=== PATIENT | female | born 1990 | race Caucasian/White ===

== ENCOUNTER 2017-07-11 19:25 | Observation (INO) | payer OTHER ==
[2017-07-11] MEDS ORDERED: ONDANSETRON 4 MG/2 ML VIAL IVP ONE (20:30)
[2017-07-11] MEDS ORDERED: LR 500 ML IV ONE (21:00)
[2017-07-11] MEDS ORDERED: LR 1,000 ML IV SCH (21:00)
[2017-07-11 21:02] LABS: % IMMATURE GRANULYOCYTES 0.3 % (0.0-1.1); ABSOLUTE IMMATURE GRANULOCYTES 0.03 10^3/uL (0.00-0.10); ADD DIFF? NO; ADD MORPH? NO; ADD SCAN? NO; ATYPICAL LYMPHOCYTE FLAG 10 (0-99); FRAGMENT RBC FLAG 0 (0-99); HEMATOCRIT 34.6 % (38.0-47.0); HEMOGLOBIN 11.7 g/dL (12.6-16.3); LEFT SHIFT FLG 0 (0-99); LIPEMIA HEMOLYSIS FLAG 90 (0-99); MEAN CELL HEMOGLOBIN 30.7 pg (27.9-34.1); MEAN CELL HEMOGLOBIN CONCENTR. 33.8 g/dL (32.4-36.7); MEAN CELL VOLUME 90.8 fL (81.5-99.8); MEAN PLATELET VOLUME 11.2 fL (8.7-11.7); PLATELET CLUMPS FLAG 0 (0-99); PLATELET COUNT 208 10^3/uL (150-400); RED BLOOD CELL COUNT 3.81 10^6/uL (4.18-5.33); RED CELL DISTRIBUTION WIDTH 13.3 % (11.5-15.2)
[2017-07-11] MEDS ORDERED: ACETAMINOPHEN 500 MG TAB PO ONE (21:43)
--- NOTE | 2017-07-11 21:47 | OBPROG ---
OBG Labor Progress Note Assessment/Plan: Assessment:fhr 150 denies regular cramping denies leaking and bleeding feeling positive movement complaint of headache since tuesday vomiting occasionally Plan:iv fluids, cbc, tylenol, zofran 07/11/17 21:48 Subjective: Came in for a complaint of nausea and vomiting irregularly since Tuesday. Multiple aches and pains, round ligament , irregular cramping, Complaint of spotting vaginally 1 week ago. States feeling movement, denies leaking, bleeding resolved Objective: 07/11/17 20:47 - Physical Exam General Appearance: WD/WN, alert, no apparent distress Respiratory: chest non-tender, lungs clear, normal breath sounds Cardiac/Chest: regular rate, rhythm Abdomen: normal bowel sounds Extremities: normal range of motion, Keshav's sign (negative bilaterally) DTR- Lower Extremities: Knee (R): 1+, Knee (L): 1+ (no clonus) Skin: normal color, warm/dry Neuro/Psych: no motor/sensory deficits, alert, normal mood/affect, oriented x 3 Oxytocin Orders Assessment - Pre-Induction/Augmentation Assessment Gestational Age: 28 week(s) and 1 day(s) ICD10 Worksheet Patient Problems: Problems Problem Status Onset nausea and vomiting, headache Acute
--- NOTE | 2017-07-11 22:30 | GHP ---
[f rep st] HISTORY AND PHYSICAL DATE OF ADMISSION: 07/11/2017 HISTORY OF PRESENT ILLNESS: The patient is a 26-year-old, 1, para 0, with an EDC of 017, which gives her a gestational age of 28 and 1/7 weeks', who comes in with complaint of nausea a nd vomiting since Tuesday, headache, feeling tired and a myriad of other common discomfor t complaints. Routinely sees someone associated with [facility]. The patient is unsure of what physician and what medical group. MEDICAL HISTORY: History of a heart murmur. SURGICAL HISTORY: Benign. GYNECOLOGICAL HISTORY: OCP use and vaginosis in the past. Renal positive beta strep in patient's u rine in the last 2 weeks. Given antibiotics to take. Unaware of antibiotic type. FAMILY HISTORY: Mom has elevated blood pressure. Paternal grandmother has breast cancer. Maternal grandmother and maternal grandfather have heart disease. Paternal grandmother and paternal grandfa ther have heart disease. SOCIAL HISTORY: Patient is a nonsmoker. Denies drug use. Denies alcohol use with the . Works outside of the home. Lives in an apartment. Is here with a significant other. States 1 week ago with the had spotting, evolved and resolved and has denied any further bleeding episo raymon. Round ligament pain patient describes. States on ultrasound at 20 weeks, growth was good. De ny previa or abruption. As of yet has not done 1-hour GTT. PHYSICAL ASSESSMENT: GENERAL: Patient is awake, alert, oriented x3. LUNGS: Clear bilaterally. A BDOMEN: Bowel sounds are positive in all 4 quadrants. EXTREMITIES: DTRs are 1+ bilaterally. Caty ns sign is negative bilaterally. States has a headache denies other PIH symptoms. LABORATORY DATA: CBC was completed, anemic 34.6. MEDICATIONS: The patient is taking vitamins routinely. ALLERGIES: Denies any allergies to any medications. Unaware of blood type. PLAN OF CARE: 1. IV fluids. 2. Monitor contractions as well as heart rate. 3. Zofran for nausea and vomiting. 4. Consult Dr. No Baltazar for plan of care. /[id number]/MODL
== END 2017-07-11 22:54 | disposition home or self-care (01) ==
LOC: INTOOBSV 19:25 → FLD 19:25
PROVIDERS: ADMIT Advanced Practice Midwife; ATTEND Advanced Practice Midwife
DX: O21.2 Late vomiting of pregnancy (principal); Z3A.28 28 weeks gestation of pregnancy
CPT/HCPCS: G0378 ×2; J2405

== ENCOUNTER 2017-10-05 15:19 | Observation (INO) | payer OTHER | END 2017-10-05 18:42 | disposition home or self-care (01) | LOC: FLD 15:19 → INTOOBSV 15:19 | PROVIDERS: ADMIT Obstetrics & Gynecology; ATTEND Obstetrics & Gynecology | DX: O28.9 Unspecified abnormal findings on antenatal screening of mother (principal); R03.0 Elevated blood-pressure reading, without diagnosis of hypertension; O48.0 Post-term pregnancy; Z3A.40 40 weeks gestation of pregnancy | CPT/HCPCS: 59025; G0378 ==

== ENCOUNTER 2017-10-10 03:11 | Inpatient (IN) | payer OTHER ==
[2017-10-10 04:41] LABS: % IMMATURE GRANULYOCYTES 0.3 % (0.0-1.1); ABSOLUTE IMMATURE GRANULOCYTES 0.02 10^3/uL (0.00-0.10); ADD DIFF? NO; ADD MORPH? NO; ADD SCAN? NO; ATYPICAL LYMPHOCYTE FLAG 0 (0-99); FRAGMENT RBC FLAG 0 (0-99); HEMATOCRIT 34.5 % (38.0-47.0); HEMOGLOBIN 11.8 g/dL (12.6-16.3); LEFT SHIFT FLG 0 (0-99); LIPEMIA HEMOLYSIS FLAG 90 (0-99); MEAN CELL HEMOGLOBIN 30.9 pg (27.9-34.1); MEAN CELL HEMOGLOBIN CONCENTR. 34.2 g/dL (32.4-36.7); MEAN CELL VOLUME 90.3 fL (81.5-99.8); MEAN PLATELET VOLUME 12.1 fL (8.7-11.7); PLATELET CLUMPS FLAG 0 (0-99); PLATELET COUNT 172 10^3/uL (150-400); RED BLOOD CELL COUNT 3.82 10^6/uL (4.18-5.33); RED CELL DISTRIBUTION WIDTH 14.3 % (11.5-15.2)
[2017-10-10 04:42] LABS: ALANINE AMINOTRANSFERASE 28 IU/L (9-52); ASPARTATE AMINOTRANSFERASE 17 IU/L (14-46); BILIRUBIN,TOTAL 0.3 mg/dL (0.1-1.4); BILIRUBIN-CONJUGATED 0.2 mg/dL (0.0-0.5); BILIRUBIN-UNCONJUGATED 0.1 mg/dL (0.0-1.1); CREATININE 0.5 mg/dL (0.6-1.0); GLOMERULAR FILTRATION RATE > 60; LACTATE DEHYDROGENASE 395 IU/L (313-618); URIC ACID 4.6 mg/dL (2.5-6.8)
[2017-10-10] MEDS ORDERED: TERBUTALINE SULFATE 1 MG/ML VIAL IV PRN (06:10)
[2017-10-10] MEDS ORDERED: OLIVE OIL 118 ML BTL MISC PRN (06:10)
[2017-10-10] MEDS ORDERED: EPSOM SALT 454 GM TP PRN (06:10)
[2017-10-10] MEDS ORDERED: LR 1,000 ML IV PRN (06:10)
[2017-10-10] MEDS ORDERED: OXYTOCIN 20 UNIT in LR 1,000 ML IV PRN (06:10)
[2017-10-10] MEDS ORDERED: MISOPROSTOL 100 MCG TAB PO ONE (07:15)
[2017-10-10] MEDS: AMPICILLIN SODIUM 1 GM in NS 50 ML IV SCH ×5 (08:11→22:00)
[2017-10-10] MEDS: ACETAMINOPHEN 325 MG TAB PO PRN ×2 (10:24→23:54)
[2017-10-10] MEDS ORDERED: AMPICILLIN SODIUM 1 GM in NS 50 ML IV SCH (10:30)
--- NOTE | 2017-10-10 12:57 | GHP ---
[f rep st] PREOP HISTORY AND PHYSICAL DATE OF ADMISSION: 10/10/2017 ADMITTING DIAGNOSES: Intrauterine at 41 and 3/7 weeks gestation with elevated blood pressu res and proteinuria for induction of labor. HISTORY OF PRESENT ILLNESS: The patient is a 26-year-old, 1, para 0, with an estimated due d ate of 09/30/2017. She has had care at [facility] since 35 weeks gestation. She originally had care at a clinic in [place] prior to that. She presented to the [facility] complaining of headaches and was found to have elevated blood pressure 140s to 160 s over 80s to 90s, and she is over 41 weeks gestation. She had some mild cramping. Her cervix was f ound to be 1, 50%, and long. The patient is admitted for induction of labor secondary to headaches, elevated blood pressures, suspected preeclampsia versus gestational hypertension, and she will be ind uced. The patient has had adequate care. No significant risk factors except for a s above. REVIEW OF SYSTEMS: Negative except for as above as well. The patient was found to have elevated blo od pressures and had a P:C ratio performed that was 0.3. She has had PIH labs done, which are all wi thin normal limits. PAST OBSTETRICAL HISTORY: She is a G1. This is her first . GYNECOLOGICAL HISTORY: No significant. PAST MEDICAL HISTORY: No significant. PAST SURGICAL HISTORY: No significant. LABORATORIES: She is A positive, antibody negative, Pap normal, varicella immune, rubella immune, RP R nonreactive, hepatitis negative, HIV negative, gonorrhea and chlamydia negative. 1-hour GTT was no rmal. GBS was positive. SOCIAL HISTORY: She has a supportive partner. She is to [place]. She denies tobacco, alcoh ol, and drug use. She is a [id number] mom. FAMILY HISTORY: She has no significant family history. PHYSICAL EXAMINATION: VITAL SIGNS: Today she is afebrile. Blood pressures have been variable with some in the 120s to 130s over 60s to 70s, and some elevated in the 150s over 90s. heart tones are in the 130s, reactive, moderate variability, category 1. ABDOMINOPELVIC: She is yury reg ularly after she received 1 dose of Cytotec. I just checked her cervix and she is 2, 50%, and soft. PIH labs are within normal limits. ASSESSMENT AND PLAN: A 26-year-old, 1, para 0, at 41 and 3/7 weeks gestation, induction of l abor secondary to suspected preeclampsia. I will place a Yeung and start Pitocin now. We will watch her symptoms carefully and consider magnesium sulfate for seizure prophylaxis if needed, and ampicil lalitha for GBS. /[id number]/MODL
[2017-10-10] MEDS ORDERED: OXYTOCIN 30 UNIT in NS 500 ML IV SCH (13:00)
--- NOTE | 2017-10-10 16:17 | OBPROG ---
Labor Progress Note Assessment/Plan: Assessment: 26 y/o @ 41 3/7 weeks IOL secondary to Gestational HTN and post dates Plan: Yeung removed and patient is 4 cm. She would like an epidural prior to AROM, will assess for anesthesia. Continue pitocin per protocol. 10/10/17 16:14 Subjective/Intrapartum Course: 10/10/17 16:11 Pt is feeling more contractions now. She had taken a shower and enjoyed the hot water for her back pain. She is sitting on the birthing ball and coping well. Objective: 10/10/17 03:55 10/10/17 03:48 Patient ABO/Rh A POSITIVE 10/10/17 06:40 Uric Acid 4.6 mg/dL (2.5-6.8) 10/10/17 03:48 Total Bilirubin 0.3 mg/dL (0.1-1.4) 10/10/17 03:48 Conjugated Bilirubin 0.2 mg/dL (0.0-0.5) 10/10/17 03:48 Unconjugated Bilirubin 0.1 mg/dL (0.0-1.1) 10/10/17 03:48 AST 17 IU/L (14-46) 10/10/17 03:48 ALT 28 IU/L (9-52) 10/10/17 03:48 Lactate Dehydrogenase 395 IU/L (313-618) 10/10/17 03:48 - SVE Dilation (cm): 4 Effacement (%): 80 Station: -2 Membranes: Intact - Contraction Pattern Assessment Current Contraction Pattern: Irregular (Q 2-4) - FHR Assessment Iniguez FHR (bpm): 140 FHR Pattern Variability: Moderate FHR Category: 1 - AP Antepartum Course: 10/10/17 16:13 Pre care @ [facility]. Elevated BP and transient proteinuria. Pt presented with [facility] @ 41 weeks Oxytocin Orders Assessment - Pre-Induction/Augmentation Assessment Gestational Age: 41 week(s) and 3 day(s) ICD10 Worksheet Patient Problems: Problems Problem Status Onset nausea and vomiting, headache Acute
[2017-10-10] MEDS ORDERED: OXYCODONE/APAP 5/325 TAB ONE (17:09)
[2017-10-10] MEDS ORDERED: fentaNYL 2MCG/ML/BUP 0.1% RTU 100 ML BAG EP ONE (17:38)
[2017-10-10] MEDS ORDERED: BUPIVACAINE 0.25% 30 ML SDV ONE (17:39)
[2017-10-10] MEDS ORDERED: PHENYLEPHRINE HCL 100 MCG/ML SYR ONE (17:39)
[2017-10-10] MEDS ORDERED: fentaNYL 100 MCG/2 ML INJ ONE (17:40)
[2017-10-10] MEDS ORDERED: OLIVE OIL 118 ML BTL ONE (18:40)
[2017-10-10] MEDS ORDERED: LIDOCAINE 1% 300 MG/30 ML SDV ONE (18:40)
[2017-10-10] MEDS ORDERED: OXYTOCIN 10 UNIT/ML VIAL ONE (18:41)
[2017-10-10] MEDS ORDERED: AMMONIA AROMATIC 1 EACH AMP IH ONE (18:41)
[2017-10-10] MEDS ORDERED: MISOPROSTOL 200 MCG TAB ONE (18:41)
[2017-10-10] MEDS ORDERED: TERBUTALINE SULFATE 1 MG/ML VIAL ONE (18:41)
[2017-10-10] MEDS ORDERED: PHENYLEPHRINE HCL 100 MCG/ML SYR IVP PRN (18:53)
--- NOTE | 2017-10-10 18:53 | PREANESOB ---
Obstetric Pre-Anesthesia Info - General Info Proposed Procedure: Labor and delivery with pitocin. : 1 Para: 0 VIOLA: 09/30/17 Gestational Age: 41 week(s) and 3 day(s) - Info Status: Postmature Monitors: External FHR Baseline (bpm): 130 FHR Pattern: Reassuring - Labor Status Cervical Dilation per last OB SVE: 4 Station per last OB SVE: -2 Pitocin: In Use Magnesium Sulfate in Use: No Indications for Labor Analgesia: Induction of Labor, Pain Control Labor Epidural: Proposed Anesthesia ROS: Negative. Allergies/Adverse Reactions: Allergy/AdvReac Type Severity Reaction Status Date / Time No Known Allergies Allergy Unverified 08/11/14 15:24 Home Medications: Medication Instructions Recorded 1 tab PO DAILY 07/11/17 Flexeril 10 MG (*) 10 mg PO PRN PRN 10/10/17 Multivitamin 1 tab PO DAILY 10/10/17 Tylenol W/Codeine 30 mg PO PRN PRN 10/10/17 Visit Medications: Generic Name Dose Route Start Last Admin Trade Name Freq PRN Reason Stop Dose Admin Acetaminophen 650 mg 10/10/17 10:05 10/10/17 10:24 Tylenol PO 04/08/18 10:04 650 mg Q4HRS PRN Administration Pain, Mild/Fever, Can Take PO Lactated Ringer's 1,000 mls @ 0 mls/hr 10/10/17 06:10 10/10/17 08:10 Lr IV 10/11/17 06:09 1,000 mls PRN PRN Administration SEE PROTOCOL CONDITIONS Protocol Per Protocol Oxytocin 20 unit/ Lactated 1,002 mls @ 150 mls/hr 10/10/17 06:10 Ringer's IV PRN PRN Post- bleeding Ampicillin Sodium 1 gm/ Sodium 50 mls @ 200 mls/hr 10/10/17 13:00 10/10/17 18 :03 Chloride IV 11/09/17 10:29 50 mls Q4H NORMA Administration Protocol Oxytocin 30 unit/ Sodium 503 mls @ 0 mls/hr 10/10/17 13:00 10/10/17 13:13 Chloride IV 04/08/18 12:59 503 mls CONT NORMA Administration Per Protocol Ibuprofen 600 mg 10/10/17 06:10 Motrin PO 04/08/18 06:09 Q6HRS PRN post , inflammation Magnesium Sulfate 454 gm 10/10/17 06:10 Epsom Salt TP 04/08/18 06:09 Q1H PRN perineal discomfort [place] Oil 118 ml 10/10/17 06:10 Sweet Oil MISC 04/08/18 06:09 ONCE PRN perineal massage Terbutaline Sulfate 0.25 mg 10/10/17 06:10 Brethine IV 04/08/18 06:09 ONCE PRN Tachysystole Discontinued Medications Generic Name Dose Route Start Last Admin Trade Name Freq PRN Reason Stop Dose Admin Ammonia (Aromatic Spirit) Confirm 10/10/17 18:41 Ammonia Aromatic Administered 10/10/17 18:42 Dose 1 each IH .STK-MED ONE Bupivacaine HCl Confirm 10/10/17 17:39 Sensorcaine 0.25% Sdv Administered 10/10/17 17:40 Dose 30 ml .ROUTE .STK-MED ONE Ephedrine Sulfate Confirm 10/10/17 18:41 Ephedrine Sulfate Administered 10/10/17 18:42 Dose 50 mg .ROUTE .STK-MED ONE Fentanyl Confirm 10/10/17 17:40 Sublimaze Administered 10/10/17 17:41 Dose 100 mcg .ROUTE .STK-MED ONE Fentanyl/Bupivacaine HCl Confirm 10/10/17 17:38 Fentanyl/Bupivacaine/Ns 2 Mcg/Ml 0.1% (Premix Administered 10/10/17 17:39 Dose 100 ml EP .STK-MED ONE Ampicillin Sodium 1 gm/ Sodium 50 mls @ 100 mls/hr 10/10/17 06:30 10/10/17 08 :56 Chloride IV 10/10/17 07:29 50 mls Q30M NORMA Administration Protocol Ampicillin Sodium 1 gm/ Sodium 50 mls @ 200 mls/hr 10/10/17 10:30 Chloride IV 11/09/17 10:29 Q4H NORMA Protocol Lidocaine HCl Confirm 10/10/17 18:40 Lidocaine Hcl 1% Administered 10/10/17 18:41 Dose 300 mg .ROUTE .STK-MED ONE Misoprostol 50 mcg 10/10/17 07:15 10/10/17 07:46 Cytotec PO 10/10/17 07:16 50 mcg ONCE ONE Administration Misoprostol Confirm 10/10/17 18:41 Cytotec Administered 10/10/17 18:42 Dose 800 mcg .ROUTE .STK-MED ONE [place] Oil Confirm 10/10/17 18:40 Sweet Oil Administered 10/10/17 18:41 Dose 118 ml .ROUTE .STK-MED ONE Oxycodone/Acetaminophen Confirm 10/10/17 17:09 Percocet 5/325 Administered 10/10/17 17:10 Dose 1 tab .ROUTE .STK-MED ONE Oxytocin Confirm 10/10/17 18:41 Pitocin Administered 10/10/17 18:42 Dose 40 unit .ROUTE .STK-MED ONE Phenylephrine HCl Confirm 10/10/17 17:39 Neosynephrine Administered 10/10/17 17:40 Dose 1,000 mcg .ROUTE .STK-MED ONE Terbutaline Sulfate Confirm 10/10/17 18:41 Brethine Administered 10/10/17 18:42 Dose 1 mg .ROUTE .STK-MED ONE - Anesthesia History Response to Local Anesthetics: Normal Anesthesia & Operative History: No Prior Problems Family Anesthesia History: Negative - Social History Substance Use/Abuse: Denies - Vital Signs Blood Pressure: 143/107 Heart Rate: 90 Height/Weight (Nursing): Height 160.02 cm Weight 89.358 kg - Focused Exam Neck exam: FROM Mallampati Score: Class 2 Mouth exam: normal dental/mouth exam Pulmonary: no respiratory distress Cardiovascular: regular rate and rhythym Labs: 10/10/17 03:55 10/10/17 03:48 Patient ABO/Rh A POSITIVE 10/10/17 06:40 Uric Acid 4.6 mg/dL (2.5-6.8) 10/10/17 03:48 Total Bilirubin 0.3 mg/dL (0.1-1.4) 10/10/17 03:48 Conjugated Bilirubin 0.2 mg/dL (0.0-0.5) 10/10/17 03:48 Unconjugated Bilirubin 0.1 mg/dL (0.0-1.1) 10/10/17 03:48 AST 17 IU/L (14-46) 10/10/17 03:48 ALT 28 IU/L (9-52) 10/10/17 03:48 Lactate Dehydrogenase 395 IU/L (313-618) 10/10/17 03:48 - Plan Anesthetic Plan: EVERETT Consent Signed and on Chart: Yes Patient/Guardian Understands and Agrees to Plan: Yes Urgent/Emergent Case: Loren contreras completed preop but documented later for safe timely pt care
--- NOTE | 2017-10-10 18:53 | POSTANESTH ---
Post Anesthetic Evaluation Cardiovascular Status: Normal, Stable, Similar to Pre-Op Cond Respiratory Status: Normal, Stable, Similar to Pre-op Cond. Level of Consciousness/Mental Status: Can Participate in Eval, Alert and Oriented Pain Control: Adequate, Prn Tx Ordered Nausea/Vomiting Control: Adequate, Prn Tx Ordered Complications Possibly Related to Anesthesia: None Noted
[2017-10-10] MEDS ORDERED: LR 500 ML IV SCH (19:00)
[2017-10-10] MEDS ORDERED: fentaNYL 2MCG/ML/BUP 0.1% RTU 100 ML EP SCH (19:00)
--- NOTE | 2017-10-10 19:34 | OBPROG ---
Labor Progress Note Assessment/Plan: Assessment: 26 y/o @ 41 3/7 weeks IOL secondary to Gestational HTN and post dates Plan: AROM patient for clear fluid now. Epidural in place and pt is comfortable, continue pitocin per protocol. BP is stable and she is asymptomatic now, continue IOL and observe closely. 10/10/17 16:14 10/10/17 19:33 Subjective/Intrapartum Course: 10/10/17 16:11 Pt is feeling more contractions now. She had taken a shower and enjoyed the hot water for her back pain. She is sitting on the birthing ball and coping well. 10/10/17 19:31 Pt is now comfortable with her epidural. Objective: 10/10/17 03:55 10/10/17 03:48 Patient ABO/Rh A POSITIVE 10/10/17 06:40 Uric Acid 4.6 mg/dL (2.5-6.8) 10/10/17 03:48 Total Bilirubin 0.3 mg/dL (0.1-1.4) 10/10/17 03:48 Conjugated Bilirubin 0.2 mg/dL (0.0-0.5) 10/10/17 03:48 Unconjugated Bilirubin 0.1 mg/dL (0.0-1.1) 10/10/17 03:48 AST 17 IU/L (14-46) 10/10/17 03:48 ALT 28 IU/L (9-52) 10/10/17 03:48 Lactate Dehydrogenase 395 IU/L (313-618) 10/10/17 03:48 Temp Pulse Resp BP Pulse Ox 90 143/107 H 10/10/17 18:53 10/10/17 18:53 - SVE Dilation (cm): 5 Effacement (%): 50 Station: -1 Membranes: AROM, Intact Amniotic Fluid Color: Clear - Contraction Pattern Assessment Current Contraction Pattern: Regular (Q 2-3), Irregular (Q 2-4) - FHR Assessment Iniguez FHR (bpm): 130 FHR Pattern Variability: Moderate FHR Category: 1 - Procedures Non-surgical Procedures: Amniotomy - AP Antepartum Course: 10/10/17 16:13 Pre care @ [facility]. Elevated BP and transient proteinuria. Pt presented with [facility] @ 41 weeks Oxytocin Orders Assessment - Pre-Induction/Augmentation Assessment Gestational Age: 41 week(s) and 3 day(s) ICD10 Worksheet Patient Problems: Problems Problem Status Onset nausea and vomiting, headache Acute
[2017-10-10] MEDS ORDERED: CALCIUM CARBONATE 500 MG CHEWABLE TAB PO PRN (22:18)
[2017-10-10] MEDS ORDERED: FAMOTIDINE 20 MG TAB PO PRN (22:18)
--- NOTE | 2017-10-10 22:18 | OBPROG ---
Labor Progress Note Assessment/Plan: Assessment: 26 y/o @ 41 3/7 weeks IOL secondary to Gestational HTN and post dates Plan: IUPC and FSE placed to carefully monitor status and contraction strength. Will increase pitocin to develop an adequate labor pattern. 10/10/17 16:14 10/10/17 19:33 10/10/17 22:16 Subjective/Intrapartum Course: 10/10/17 16:11 Pt is feeling more contractions now. She had taken a shower and enjoyed the hot water for her back pain. She is sitting on the birthing ball and coping well. 10/10/17 19:31 Pt is now comfortable with her epidural. 10/10/17 22:15 Pt remains comfortable with her epidural. Objective: 10/10/17 03:55 10/10/17 03:48 Patient ABO/Rh A POSITIVE 10/10/17 06:40 Uric Acid 4.6 mg/dL (2.5-6.8) 10/10/17 03:48 Total Bilirubin 0.3 mg/dL (0.1-1.4) 10/10/17 03:48 Conjugated Bilirubin 0.2 mg/dL (0.0-0.5) 10/10/17 03:48 Unconjugated Bilirubin 0.1 mg/dL (0.0-1.1) 10/10/17 03:48 AST 17 IU/L (14-46) 10/10/17 03:48 ALT 28 IU/L (9-52) 10/10/17 03:48 Lactate Dehydrogenase 395 IU/L (313-618) 10/10/17 03:48 Temp Pulse Resp BP Pulse Ox 90 143/107 H 10/10/17 18:53 10/10/17 18:53 - SVE Dilation (cm): 6 Effacement (%): 80 Station: 0 Membranes: AROM, Intact Amniotic Fluid Color: Clear - Contraction Pattern Assessment Current Contraction Pattern: Regular (Q 2-3), Irregular (Q 2-4) - FHR Assessment Iniguez FHR (bpm): 130 FHR Pattern Variability: Moderate FHR Category: 1 (occasional early and rare variable decels) - Procedures Non-surgical Procedures: Amniotomy, FSE, IUPC - AP Antepartum Course: 10/10/17 16:13 Pre rosita care @ [facility]. Elevated BP and transient proteinuria. Pt presented with [facility] @ 41 weeks Oxytocin Orders Assessment - Pre-Induction/Augmentation Assessment Gestational Age: 41 week(s) and 3 day(s) ICD10 Worksheet Patient Problems: Problems Problem Status Onset nausea and vomiting, headache Acute
[2017-10-10] MEDS: ONDANSETRON 4 MG/2 ML VIAL IVP PRN (23:01)
--- NOTE | 2017-10-11 01:03 | OBPROG ---
Labor Progress Note Assessment/Plan: Assessment: 26 y/o @ 41 3/7 weeks IOL secondary to Gestational HTN and post dates Plan: Pt is making slow but steady progress. Baby is overall reassuring showing early decels. Re check in 2 hours. 10/10/17 16:14 10/10/17 19:33 10/10/17 22:16 10/11/17 01:00 Subjective/Intrapartum Course: 10/10/17 16:11 Pt is feeling more contractions now. She had taken a shower and enjoyed the hot water for her back pain. She is sitting on the birthing ball and coping well. 10/10/17 19:31 Pt is now comfortable with her epidural. 10/10/17 22:15 Pt remains comfortable with her epidural. 10/11/17 00:59 Pt is resting comfortably. Objective: 10/10/17 03:55 10/10/17 03:48 Patient ABO/Rh A POSITIVE 10/10/17 06:40 Uric Acid 4.6 mg/dL (2.5-6.8) 10/10/17 03:48 Total Bilirubin 0.3 mg/dL (0.1-1.4) 10/10/17 03:48 Conjugated Bilirubin 0.2 mg/dL (0.0-0.5) 10/10/17 03:48 Unconjugated Bilirubin 0.1 mg/dL (0.0-1.1) 10/10/17 03:48 AST 17 IU/L (14-46) 10/10/17 03:48 ALT 28 IU/L (9-52) 10/10/17 03:48 Lactate Dehydrogenase 395 IU/L (313-618) 10/10/17 03:48 Temp Pulse Resp BP Pulse Ox 90 143/107 H 10/10/17 18:53 10/10/17 18:53 - SVE Dilation (cm): 8 Effacement (%): 90 Station: 0 Membranes: AROM, Intact Amniotic Fluid Color: Clear - Contraction Pattern Assessment Current Contraction Pattern: Regular (Q 2-3), Irregular (Q 2-4) - FHR Assessment Iniguez FHR (bpm): 140 FHR Pattern Variability: Moderate FHR Category: 1 (early decels) - Procedures Non-surgical Procedures: Amniotomy, FSE, IUPC - AP Antepartum Course: 10/10/17 16:13 Pre rosita care @ [facility]. Elevated BP and transient proteinuria. Pt presented with [facility] @ 41 weeks Oxytocin Orders Assessment - Pre-Induction/Augmentation Assessment Gestational Age: 41 week(s) and 3 day(s) ICD10 Worksheet Patient Problems: Problems Problem Status Onset nausea and vomiting, headache Acute
[2017-10-11] MEDS: AMPICILLIN SODIUM 1 GM in NS 50 ML IV SCH ×4 (02:09→13:30)
--- NOTE | 2017-10-11 05:00 | OBPROG ---
Labor Progress Note Assessment/Plan: Assessment: 26 y/o @ 41 3/7 weeks IOL secondary to Gestational HTN and post dates Plan: Pt has made slow progress but change in the last hour. We will rotate her to the left and re check in 1 hour. 10/10/17 16:14 10/10/17 19:33 10/10/17 22:16 10/11/17 01:00 10/11/17 04:58 Subjective/Intrapartum Course: 10/10/17 16:11 Pt is feeling more contractions now. She had taken a shower and enjoyed the hot water for her back pain. She is sitting on the birthing ball and coping well. 10/10/17 19:31 Pt is now comfortable with her epidural. 10/10/17 22:15 Pt remains comfortable with her epidural. 10/11/17 00:59 Pt is resting comfortably. 10/11/17 04:56 Pt is now feeling more pelvic pressure and the sensation to have a BM. Objective: 10/10/17 03:55 10/10/17 03:48 Patient ABO/Rh A POSITIVE 10/10/17 06:40 Uric Acid 4.6 mg/dL (2.5-6.8) 10/10/17 03:48 Total Bilirubin 0.3 mg/dL (0.1-1.4) 10/10/17 03:48 Conjugated Bilirubin 0.2 mg/dL (0.0-0.5) 10/10/17 03:48 Unconjugated Bilirubin 0.1 mg/dL (0.0-1.1) 10/10/17 03:48 AST 17 IU/L (14-46) 10/10/17 03:48 ALT 28 IU/L (9-52) 10/10/17 03:48 Lactate Dehydrogenase 395 IU/L (313-618) 10/10/17 03:48 Temp Pulse Resp BP Pulse Ox 90 143/107 H 10/10/17 18:53 10/10/17 18:53 - SVE Dilation (cm): 9 Effacement (%): 90 Station: +1 Membranes: AROM, Intact Amniotic Fluid Color: Clear - Contraction Pattern Assessment Current Contraction Pattern: Regular (Q 2-3), Irregular (Q 2-4) - FHR Assessment Iniguez FHR (bpm): 140 FHR Pattern Variability: Moderate FHR Category: 1 (early decelerations) - Procedures Non-surgical Procedures: Amniotomy, FSE, IUPC - AP Antepartum Course: 10/10/17 16:13 Pre rosita care @ [facility]. Elevated BP and transient proteinuria. Pt presented with [facility] @ 41 weeks Oxytocin Orders Assessment - Pre-Induction/Augmentation Assessment Gestational Age: 41 week(s) and 3 day(s) ICD10 Worksheet Patient Problems: Problems Problem Status Onset nausea and vomiting, headache Acute
[2017-10-11] MEDS: ONDANSETRON 4 MG/2 ML VIAL IVP PRN ×4 (06:08→18:50)
[2017-10-11] MEDS: ACETAMINOPHEN 325 MG TAB PO PRN (08:18)
--- NOTE | 2017-10-11 10:57 | OBPROG ---
Labor Progress Note Assessment/Plan: Assessment: 26 y/o @ 41 3/7 weeks for IOL secondary to Gestational HTN and post dates Plan: Pt has been pushing x 1 hour now, off and on FHTs - Cat I tracing with early decels Temp 37.7, will cont to monitor Will monitor for descent 10/11/17 10:57 Subjective/Intrapartum Course: 10/10/17 16:11 Pt is feeling more contractions now. She had taken a shower and enjoyed the hot water for her back pain. She is sitting on the birthing ball and coping well. 10/10/17 19:31 Pt is now comfortable with her epidural. 10/10/17 22:15 Pt remains comfortable with her epidural. 10/11/17 00:59 Pt is resting comfortably. 10/11/17 04:56 Pt is now feeling more pelvic pressure and the sensation to have a BM. 10/11/17 11:03 Pt is pushing now. Objective: 10/10/17 03:55 10/10/17 03:48 Patient ABO/Rh A POSITIVE 10/10/17 06:40 Uric Acid 4.6 mg/dL (2.5-6.8) 10/10/17 03:48 Total Bilirubin 0.3 mg/dL (0.1-1.4) 10/10/17 03:48 Conjugated Bilirubin 0.2 mg/dL (0.0-0.5) 10/10/17 03:48 Unconjugated Bilirubin 0.1 mg/dL (0.0-1.1) 10/10/17 03:48 AST 17 IU/L (14-46) 10/10/17 03:48 ALT 28 IU/L (9-52) 10/10/17 03:48 Lactate Dehydrogenase 395 IU/L (313-618) 10/10/17 03:48 Temp Pulse Resp BP Pulse Ox 90 143/107 H 10/10/17 18:53 10/10/17 18:53 - SVE Dilation (cm): 10 Effacement (%): 100 Station: +2 Membranes: AROM, Intact Amniotic Fluid Color: Clear Dilation Complete Date: 10/11/17 Dilation Complete Time: 10:50 - Contraction Pattern Assessment Current Contraction Pattern: Regular (Q 2-3) - FHR Assessment Iniguez FHR (bpm): 130 FHR Pattern Variability: Moderate FHR Category: 1 - Procedures Non-surgical Procedures: Amniotomy, FSE, IUPC - AP Antepartum Course: 10/10/17 16:13 Pre care @ [facility]. Elevated BP and transient proteinuria. Pt presented with [facility] @ 41 weeks Oxytocin Orders Assessment - Pre-Induction/Augmentation Assessment Gestational Age: 41 week(s) and 3 day(s) ICD10 Worksheet Patient Problems: Problems Problem Status Onset Gestational hypertension Acute Post-dates Acute nausea and vomiting, headache Acute - ICD10 Problem Qualifiers (1) Post-dates (2) Gestational hypertension
[2017-10-11] MEDS ORDERED: ceFAZolin 2 GM/DEXTROSE 100 ML IV ONE (14:36)
--- NOTE | 2017-10-11 14:40 | OBPROG ---
Labor Progress Note Assessment/Plan: Assessment: 26 y/o @ 41 3/7 weeks for IOL secondary to Gestational HTN and post dates Plan: Pt has labored down x 1 hour and pushed x 2-3 times with no decent of head Discussed proceeding to OR for PCS secondary to arrest of descent and prolonged second stage of labor Surgical consents obtained Discussed R/B/A with pt including but not limited to bleeding, infection and damage to surrounding organs Pt understands all risks and wants to proceed with surgery at this time Abx fire control officer to OR SCDs for DVT prophylaxis 10/11/17 14:37 Subjective/Intrapartum Course: 10/10/17 16:11 Pt is feeling more contractions now. She had taken a shower and enjoyed the hot water for her back pain. She is sitting on the birthing ball and coping well. 10/10/17 19:31 Pt is now comfortable with her epidural. 10/10/17 22:15 Pt remains comfortable with her epidural. 10/11/17 00:59 Pt is resting comfortably. 10/11/17 04:56 Pt is now feeling more pelvic pressure and the sensation to have a BM. 10/11/17 11:03 Pt is pushing now. 10/11/17 14:39 Pt is starting to feel her ctx's. Objective: 10/10/17 03:55 10/10/17 03:48 Patient ABO/Rh A POSITIVE 10/10/17 06:40 Uric Acid 4.6 mg/dL (2.5-6.8) 10/10/17 03:48 Total Bilirubin 0.3 mg/dL (0.1-1.4) 10/10/17 03:48 Conjugated Bilirubin 0.2 mg/dL (0.0-0.5) 10/10/17 03:48 Unconjugated Bilirubin 0.1 mg/dL (0.0-1.1) 10/10/17 03:48 AST 17 IU/L (14-46) 10/10/17 03:48 ALT 28 IU/L (9-52) 10/10/17 03:48 Lactate Dehydrogenase 395 IU/L (313-618) 10/10/17 03:48 Temp Pulse Resp BP Pulse Ox 90 143/107 H 10/10/17 18:53 10/10/17 18:53 - SVE Dilation (cm): 10 Effacement (%): 100 Station: +1 Membranes: AROM, Intact Amniotic Fluid Color: Clear Dilation Complete Date: 10/11/17 Dilation Complete Time: 10:50 - Contraction Pattern Assessment Current Contraction Pattern: Irregular - FHR Assessment Iniguez FHR (bpm): 130 FHR Pattern Variability: Moderate FHR Category: 1 - Procedures Non-surgical Procedures: Amniotomy, FSE, IUPC - AP Antepartum Course: 10/10/17 16:13 care @ [facility]. Elevated BP and transient proteinuria. Pt presented with SHAH @ 41 weeks 10/11/17 14:41 Oxytocin Orders Assessment - Pre-Induction/Augmentation Assessment Gestational Age: 41 week(s) and 3 day(s) ICD10 Worksheet Patient Problems: Problems Problem Status Onset Gestational hypertension Acute Post-dates Acute - ICD10 Problem Qualifiers (1) Post-dates (2) Gestational hypertension
[2017-10-11] MEDS ORDERED: HYDROmorphONE/DILAUDID 1 MG/ML INJ IVP PRN (15:07)
[2017-10-11] MEDS ORDERED: ONDANSETRON 4 MG/2 ML VIAL IVP PRN (15:07)
[2017-10-11] MEDS ORDERED: fentaNYL 100 MCG/2 ML INJ IVP PRN (15:07)
--- NOTE | 2017-10-11 15:09 | PREANESOB ---
Obstetric Pre-Anesthesia Info - General Info Proposed Procedure: : 1 Para: 0 VIOLA: 09/30/17 Gestational Age: 41 week(s) and 3 day(s) - Info Status: Postmature FHR Baseline (bpm): 130 - Labor Status Cervical Dilation per last OB SVE: 10 Station per last OB SVE: +1 Amniotic Fluid Color: Clear Indications for Current Section: Arrest of Descent Labor Epidural: Yes Anesthesia Allergies/Adverse Reactions: Allergy/AdvReac Type Severity Reaction Status Date / Time No Known Allergies Allergy Unverified 08/11/14 15:24 Home Medications: Medication Instructions Recorded 1 tab PO DAILY 07/11/17 Flexeril 10 MG (*) 10 mg PO PRN PRN 10/10/17 Multivitamin 1 tab PO DAILY 10/10/17 Tylenol W/Codeine 30 mg PO PRN PRN 10/10/17 Visit Medications: Generic Name Dose Route Start Last Admin Trade Name Freq PRN Reason Stop Dose Admin Acetaminophen 650 mg 10/10/17 10:05 10/11/17 08:18 Tylenol PO 04/08/18 10:04 650 mg Q4HRS PRN Administration Pain, Mild/Fever, Can Take PO Calcium Carbonate 500 mg 10/10/17 22:18 Tums PO 04/08/18 22:17 TID PRN Indigestion Diphenhydramine HCl 25 - 50 mg 10/10/17 18:53 Benadryl Injection IVP 04/08/18 18:52 Q6HRS PRN Itching Famotidine 20 mg 10/10/17 22:18 10/10/17 22:27 Pepcid PO 04/08/18 22:29 20 mg BID PRN Administration Indigestion Oxytocin 20 unit/ Lactated 1,002 mls @ 150 mls/hr 10/10/17 06:10 Ringer's IV PRN PRN Post- bleeding Ampicillin Sodium 1 gm/ Sodium 50 mls @ 200 mls/hr 10/10/17 13:00 10/11/17 13 :30 Chloride IV 11/09/17 10:29 50 mls Q4H NORMA Administration Protocol Oxytocin 30 unit/ Sodium 503 mls @ 0 mls/hr 10/10/17 13:00 10/10/17 13:13 Chloride IV 04/08/18 12:59 503 mls CONT NORMA Administration Per Protocol Fentanyl/Bupivacaine HCl 100 mls @ 0 mls/hr 10/10/17 19:00 Fentanyl/Bupivacaine/Ns 2 Mcg/Ml 0.1% (Premix EP 10/20/17 18:59 CONT NORMA Protocol As Directed Lactated Ringer's 500 mls @ 0 mls/hr 10/10/17 19:00 Lr IV 04/08/18 18:59 CONT NORMA As Directed Ibuprofen 600 mg 10/10/17 06:10 Motrin PO 04/08/18 06:09 Q6HRS PRN post , inflammation Magnesium Sulfate 454 gm 10/10/17 06:10 Epsom Salt TP 04/08/18 06:09 Q1H PRN perineal discomfort [place] Oil 118 ml 10/10/17 06:10 Sweet Oil MISC 04/08/18 06:09 ONCE PRN perineal massage Ondansetron HCl 4 mg 10/10/17 18:53 10/11/17 13:39 Zofran IVP 10/11/17 18:52 4 mg Q4HRS PRN Administration Nausea/Vomiting, Can't Take PO Phenylephrine HCl 100 mcg 10/10/17 18:53 Neosynephrine IVP 04/08/18 18:52 .Q2M PRN Hypotension Terbutaline Sulfate 0.25 mg 10/10/17 06:10 Brethine IV 04/08/18 06:09 ONCE PRN Tachysystole Discontinued Medications Generic Name Dose Route Start Last Admin Trade Name Freq PRN Reason Stop Dose Admin Ammonia (Aromatic Spirit) Confirm 10/10/17 18:41 Ammonia Aromatic Administered 10/10/17 18:42 Dose 1 each IH .STK-MED ONE Bupivacaine HCl Confirm 10/10/17 17:39 Sensorcaine 0.25% Sdv Administered 10/10/17 17:40 Dose 30 ml .ROUTE .STK-MED ONE Ephedrine Sulfate Confirm 10/10/17 18:41 Ephedrine Sulfate Administered 10/10/17 18:42 Dose 50 mg .ROUTE .STK-MED ONE Fentanyl Confirm 10/10/17 17:40 Sublimaze Administered 10/10/17 17:41 Dose 100 mcg .ROUTE .STK-MED ONE Fentanyl/Bupivacaine HCl Confirm 10/10/17 17:38 Fentanyl/Bupivacaine/Ns 2 Mcg/Ml 0.1% (Premix Administered 10/10/17 17:39 Dose 100 ml EP .STK-MED ONE Ampicillin Sodium 1 gm/ Sodium 50 mls @ 100 mls/hr 10/10/17 06:30 10/10/17 08 :56 Chloride IV 10/10/17 07:29 50 mls Q30M NORMA Administration Protocol Ampicillin Sodium 1 gm/ Sodium 50 mls @ 200 mls/hr 10/10/17 10:30 10/10/17 23 :58 Chloride IV 11/09/17 10:29 Not Given Q4H [facility] Protocol Lactated Ringer's 1,000 mls @ 0 mls/hr 10/10/17 06:10 10/10/17 08:10 Lr IV 10/11/17 06:09 1,000 mls PRN PRN Administration SEE PROTOCOL CONDITIONS Protocol Per Protocol Cefazolin Sodium/Dextrose 100 mls @ 200 mls/hr 10/11/17 14:36 10/11/17 14:58 Ancef 2 Gm (Premix) IV 10/11/17 15:05 100 mls ONCALL ONE Administration Protocol Lidocaine HCl Confirm 10/10/17 18:40 Lidocaine Hcl 1% Administered 10/10/17 18:41 Dose 300 mg .ROUTE .STK-MED ONE Misoprostol 50 mcg 10/10/17 07:15 10/10/17 07:46 Cytotec PO 10/10/17 07:16 50 mcg ONCE ONE Administration Misoprostol Confirm 10/10/17 18:41 Cytotec Administered 10/10/17 18:42 Dose 800 mcg .ROUTE .STK-MED ONE Morphine Sulfate Confirm 10/11/17 14:59 Morphine Sulfate Administered 10/11/17 15:00 Dose 10 mg .ROUTE .STK-MED ONE [place] Oil Confirm 10/10/17 18:40 Sweet Oil Administered 10/10/17 18:41 Dose 118 ml .ROUTE .STK-MED ONE Oxycodone/Acetaminophen Confirm 10/10/17 17:09 Percocet 5/325 Administered 10/10/17 17:10 Dose 1 tab .ROUTE .STK-MED ONE Oxytocin Confirm 10/10/17 18:41 Pitocin Administered 10/10/17 18:42 Dose 40 unit .ROUTE .STK-MED ONE Phenylephrine HCl Confirm 10/10/17 17:39 Neosynephrine Administered 10/10/17 17:40 Dose 1,000 mcg .ROUTE .STK-MED ONE Terbutaline Sulfate Confirm 10/10/17 18:41 Brethine Administered 10/10/17 18:42 Dose 1 mg .ROUTE .STK-MED ONE - Vital Signs Latest Vital Signs (Nursing): Temp Pulse Resp BP Pulse Ox 90 143/107 H 10/10/17 18:53 10/10/17 18:53 Height/Weight (Nursing): Height 160.02 cm Weight 89.358 kg - Focused Exam Neck exam: FROM Mallampati Score: Class 2 Mouth exam: small mouth opening Pulmonary: clear to auscultation Cardiovascular: regular rate and rhythym Labs: 10/10/17 03:55 10/10/17 03:48 Patient ABO/Rh A POSITIVE 10/10/17 06:40 Uric Acid 4.6 mg/dL (2.5-6.8) 10/10/17 03:48 Total Bilirubin 0.3 mg/dL (0.1-1.4) 10/10/17 03:48 Conjugated Bilirubin 0.2 mg/dL (0.0-0.5) 10/10/17 03:48 Unconjugated Bilirubin 0.1 mg/dL (0.0-1.1) 10/10/17 03:48 AST 17 IU/L (14-46) 10/10/17 03:48 ALT 28 IU/L (9-52) 10/10/17 03:48 Lactate Dehydrogenase 395 IU/L (313-618) 10/10/17 03:48 - Plan Consent Signed and on Chart: Yes Patient/Guardian Understands and Agrees to Plan: Yes
[2017-10-11] MEDS ORDERED: RANITIDINE 50 MG/2 ML VIAL ONE (15:13)
[2017-10-11] MEDS ORDERED: ONDANSETRON 4 MG/2 ML VIAL ONE ×2 (15:13→18:50)
[2017-10-11] MEDS ORDERED: PHENYLEPHRINE HCL 100 MCG/ML SYR ONE (15:23)
[2017-10-11] MEDS ORDERED: OXYTOCIN 100 UNITS/10 ML VIAL ONE (15:24)
[2017-10-11] MEDS ORDERED: METOCLOPRAMIDE 10 MG/2 ML VIAL ONE (15:24)
[2017-10-11] MEDS ORDERED: fentaNYL 100 MCG/2 ML INJ ONE (16:09)
[2017-10-11 16:14] LABS: BASE EXCESS CORD -6.3 mEq/L (-13.6--3.2); PH ARTERIAL CORD BLOOD 7.27 (7.10-7.37)
--- NOTE | 2017-10-11 16:39 | POSTANESTH ---
Post Anesthetic Evaluation Cardiovascular Status: Normal, Stable Respiratory Status: Normal, Stable Level of Consciousness/Mental Status: Can Participate in Eval, Alert and Oriented Pain Control: Adequate, Prn Tx Ordered Nausea/Vomiting Control: Adequate, Prn Tx Ordered Complications Possibly Related to Anesthesia: None Noted
[2017-10-11] MEDS ORDERED: PROMETHAZINE HCL 25 MG/ML INJ IVP PRN (16:54)
[2017-10-11] MEDS ORDERED: DOCUSATE SODIUM 100 MG CAP PO PRN (16:54)
[2017-10-11] MEDS ORDERED: POLYETHYLENE GLYCOL 3350 17 GM PKT PO PRN (16:54)
[2017-10-11] MEDS ORDERED: IBUPROFEN 600 MG TAB PO PRN (16:54)
[2017-10-11] MEDS ORDERED: SIMETHICONE 80 MG TAB CHEW PO PRN (16:54)
[2017-10-11] MEDS ORDERED: LACTULOSE 20 GM/30 ML UDCUP PO PRN (16:54)
[2017-10-11] MEDS ORDERED: BISACODYL 10 MG SUPP PR PRN (16:54)
[2017-10-11] MEDS ORDERED: MAGNESIUM HYDROXIDE 30 ML UDCUP PO PRN (16:54)
--- NOTE | 2017-10-11 16:59 | OBDEL ---
Info Type: Primary Presentation at Delivery: Vertex L&D Analgesia/Anesthesia Type: Spinal (Epidural to Spinal) GBS+: Yes Antibiotic Used for + GBS: Ampicillin Intrapartum Medications: Generic Name Dose Route Start Last Admin Trade Name Freq PRN Reason Stop Dose Admin Acetaminophen 650 mg 10/10/17 10:05 10/11/17 08:18 Tylenol PO 04/08/18 10:04 650 mg Q4HRS PRN Administration Pain, Mild/Fever, Can Take PO Famotidine 20 mg 10/10/17 22:18 10/10/17 22:27 Pepcid PO 04/08/18 22:29 20 mg BID PRN Administration Indigestion Oxytocin 30 unit/ Sodium 503 mls @ 0 mls/hr 10/10/17 13:00 10/10/17 13:13 Chloride IV 04/08/18 12:59 503 mls CONT NORMA Administration Per Protocol Ondansetron HCl 4 mg 10/10/17 18:53 10/11/17 13:39 Zofran IVP 10/11/17 18:52 4 mg Q4HRS PRN Administration Nausea/Vomiting, Can't Take PO Discontinued Medications Generic Name Dose Route Start Last Admin Trade Name Jenna PRN Reason Stop Dose Admin Ampicillin Sodium 1 gm/ Sodium 50 mls @ 100 mls/hr 10/10/17 06:30 10/10/17 08 :56 Chloride IV 10/10/17 07:29 50 mls Q30M NORMA Administration Protocol Ampicillin Sodium 1 gm/ Sodium 50 mls @ 200 mls/hr 10/10/17 10:30 10/10/17 23 :58 Chloride IV 11/09/17 10:29 Not Given Q4H NORMA Protocol Lactated Ringer's 1,000 mls @ 0 mls/hr 10/10/17 06:10 10/10/17 08:10 Lr IV 10/11/17 06:09 1,000 mls PRN PRN Administration SEE PROTOCOL CONDITIONS Protocol Per Protocol Ampicillin Sodium 1 gm/ Sodium 50 mls @ 200 mls/hr 10/10/17 13:00 10/11/17 13 :30 Chloride IV 11/09/17 10:29 50 mls Q4H NORMA Administration Protocol Cefazolin Sodium/Dextrose 100 mls @ 200 mls/hr 10/11/17 14:36 10/11/17 14:58 Ancef 2 Gm (Premix) IV 10/11/17 15:05 100 mls ONCALL ONE Administration Protocol Misoprostol 50 mcg 10/10/17 07:15 10/10/17 07:46 Cytotec PO 10/10/17 07:16 50 mcg ONCE ONE Administration - Infant Care Provider Integrated Circuit Layout Designer/PRODUCTION UTILITY WORKER: Evelyn Bharath - Hospital Course Intrapartum: 10/10/17 16:11 Pt is feeling more contractions now. She had taken a shower and enjoyed the hot water for her back pain. She is sitting on the birthing ball and coping well. 10/10/17 19:31 Pt is now comfortable with her epidural. 10/10/17 22:15 Pt remains comfortable with her epidural. 10/11/17 00:59 Pt is resting comfortably. 10/11/17 04:56 Pt is now feeling more pelvic pressure and the sensation to have a BM. 10/11/17 11:03 Pt is pushing now. 10/11/17 14:39 Pt is starting to feel her ctx's. Indications for Delivery: Gestational Hypertension (IOL secondary to GHTN and postdates; arrest of descent; prolonged second stage) Vaginal Delivery - Labor and Delivery Onset of Contractions Date: 10/11/17 Onset of Contractions Time: 19:00 Amniotic Fluid Color: Clear Dilation Complete Date: 10/11/17 Dilation Complete Time: 10:50 Non-surgical Procedures: Amniotomy, FSE, IUPC Cord Gases: Cord Gases Cord Blood PCO2 46.0 mmHg (37-60) 10/11/17 16:04 Cord Base Excess -6.3 mEq/L (-13.6--3.2) 10/11/17 16:04 Cord ABG pH 7.27 (7.10-7.37) 10/11/17 16:04 Cord VBG pH REJ 10/11/17 16:04 Operative Report - Delivery Pre-op Diagnoses: IUP @ 41 4/7 wks for IOL secondary to GHTN and post dates; arrest of descent and prolonged second stage of labor Post-op Diagnoses: IUP @ 41 4/7 wks for IOL secondary to GHTN and post dates; arrest of descent and prolonged second stage of labor History of Prior Section: No Number of Prior Sections: 0 Nulliparous Prior to Delivery: Yes Indications for Current Section: Arrest of Descent Procedure: Low Transverse Surgeon: No Baltazar Talent Sourcing Specialist: Lina Borden Anesthesiologist: Phil Sotomayor Complications: None Findings: A viable male infant born at 1556 in cephalic presentation-direct OP, asynclitic weighing 3674 gms with 4 and 8 Apgars. Meconium-stained fluid noted. Cord gases ABG 7.1 and VBG rejected. Cord blood was obtained. Placenta delivered spontaneously intact with 3 -vc. Grossly normal appearing uterus, tubes and ovaries. Bladder was back-filled with formula and bladder appeared intact with no spill of formula in abdomen. Specimen(s)/Path: Other (Specify) (placenta) IV Fluid (ml): 1,200 EBL: 800cc UO-400 cc clear urine Cord Gases: Cord Gases Cord Blood PCO2 46.0 mmHg (37-60) 10/11/17 16:04 Cord Base Excess -6.3 mEq/L (-13.6--3.2) 10/11/17 16:04 Cord ABG pH 7.27 (7.10-7.37) 10/11/17 16:04 Cord VBG pH REJ 10/11/17 16:04 Data VIOLA: 09/30/17 Gestational Age: 41 week(s) and 4 day(s) Iniguez Delivery Date: 10/11/17 Delivery Time: 15:56 Sex of Infant: Male ("Edi") Score (1 Min): 4 Score (5 Min): 8 ICD10 Worksheet Patient Problems: Problems Problem Status Onset Arrest of descent, delivered, current hospitalization Acute Gestational hypertension Acute Post-dates Acute Status post primary low transverse section Acute - ICD10 Problem Qualifiers (1) Post-dates (2) Gestational hypertension (3) Arrest of descent, delivered, current hospitalization (4) Status post primary low transverse section
[2017-10-11] MEDS ORDERED: KETOROLAC 30 MG/1 ML SDV ONE (18:21)
[2017-10-11] MEDS: KETOROLAC 30 MG/1 ML SDV IVP SCH (18:23)
[2017-10-11] MEDS: SENNOSIDES/DOCUSATE SODIUM TAB PO SCH (23:09)
[2017-10-12] MEDS: KETOROLAC 30 MG/1 ML SDV IVP SCH ×3 (00:14→11:59)
--- NOTE | 2017-10-12 08:01 | POSTANESTH ---
Post Anesthetic Evaluation Cardiovascular Status: Normal, Stable Respiratory Status: Normal, Stable Level of Consciousness/Mental Status: Can Participate in Eval, Alert and Oriented Pain Control: Adequate, Prn Tx Ordered Nausea/Vomiting Control: Adequate, Prn Tx Ordered (DURAMORPH Follow-Up: Pain well controlled. Pt amublating with no complaints.)
[2017-10-12] MEDS: SENNOSIDES/DOCUSATE SODIUM TAB PO SCH ×2 (10:31→19:22)
[2017-10-12] MEDS: IRON POLYSAC/IRON HEME 28 MG TAB PO SCH ×2 (12:06→19:22)
--- NOTE | 2017-10-12 15:42 | OBPP ---
Progress Note Assessment/Plan: Assessment: POD 1 s/p Primary C/S anemia Plan: Iron BID, routine care 10/12/17 15:39 Subjective/ Course: 10/12/17 15:40 Pt doing ok. Reports some cramps and pulling pains. Bld is moderate. has cath is place - ok UOP. Elissa reg diet and no nausea today. Has been working on BF. Objective: 10/12/17 05:45 10/10/17 03:48 Patient ABO/Rh A POSITIVE 10/10/17 06:40 Uric Acid 4.6 mg/dL (2.5-6.8) 10/10/17 03:48 Total Bilirubin 0.3 mg/dL (0.1-1.4) 10/10/17 03:48 Conjugated Bilirubin 0.2 mg/dL (0.0-0.5) 10/10/17 03:48 Unconjugated Bilirubin 0.1 mg/dL (0.0-1.1) 10/10/17 03:48 AST 17 IU/L (14-46) 10/10/17 03:48 ALT 28 IU/L (9-52) 10/10/17 03:48 Lactate Dehydrogenase 395 IU/L (313-618) 10/10/17 03:48 Temp Pulse Resp BP Pulse Ox 37.0 C 107 H 20 103/66 95 10/12/17 12:15 10/12/17 12:15 10/12/17 12:15 10/12/17 12:15 10/12/17 12:15 Uterine Position/Fundal Height: At Umbilicus Uterine Tone: Firm Physical Exam - Physical Exam Abdomen: non-tender (approp post op tenderness), soft, other (bandage CDI) Extremities: non-tender, pedal edema (mild) Skin: normal color, warm/dry Neuro/Psych: alert, normal mood/affect
[2017-10-12] MEDS: HYDROCODONE/APAP 5/325 TAB PO PRN ×3 (16:28→21:53)
[2017-10-12] MEDS: IBUPROFEN 600 MG TAB PO PRN (18:23)
[2017-10-13] MEDS: IBUPROFEN 600 MG TAB PO PRN ×4 (00:05→18:28)
[2017-10-13] MEDS: HYDROCODONE/APAP 5/325 TAB PO PRN ×4 (06:04→16:08)
[2017-10-13] MEDS: IRON POLYSAC/IRON HEME 28 MG TAB PO SCH ×2 (08:42→21:53)
[2017-10-13] MEDS: SENNOSIDES/DOCUSATE SODIUM TAB PO SCH ×2 (08:42→21:53)
--- NOTE | 2017-10-13 10:07 | GOP ---
[f rep st] OPERATIVE REPORT DATE OF OPERATION: 10/11/2017 SURGEON: No Baltazar DO MEDICAL CONCIERGE: EDISON Parada. ANESTHESIA: Epidural removed and a spinal placed. ANESTHESIOLOGIST: Dr. Sotomayor. PREOPERATIVE DIAGNOSIS: Intrauterine at 41 and 4/7 weeks', for induction of labor secondary to gestational hypertension and post dates. Arrest of descent, prolonged 2nd stage of labor. POSTOPERATIVE DIAGNOSIS: Intrauterine at 41 and 4/7 weeks', for induction of labor secondary to gestational hypertension and post dates. Arrest of descent, prolonged 2nd stage of labor. PROCEDURE PERFORMED: Primary low transverse section. FINDINGS: A viable male infant, born at 1556, in cephalic presentation, OP with 4 and 8 Apgars. Cord ABG 7.27. Cord VBG was rejected. Cord base excess - 6.3. Cord blood was obtained. Placenta delivered spontaneously intact with 3- vessel cord. Grossly normal-appearing uterus, tubes, and ovaries bilaterally. ESTIMATED BLOOD LOSS: 800 cc. INDICATIONS: The patient is a 26-year-old, 1, para 0, at 41 and 4/7 weeks' who presented with elevated blood pressures and postdates and was induced. Sheis status post Cytotec, Yeung balloon and Pitocin. She made it to complete, and pushed for 1-1/2 to 2 hours with little descent of head. She then labored down for an hour, started pushing again and there was no descent of head noted, prolonged 2nd stage of labor. Discussed proceeding for a primary . Discussed risks, benefits, alternatives of the procedure, including but not limited to, bleeding, infection, and damage to surrounding organs. Patient understands the risks of the procedure and wants to proceed at this time. The patient was appropriately consented. DESCRIPTION OF PROCEDURE: Patient was taken to the operating room where an epidural anesthesia was removed. The patient was given spinal anesthesia without difficulty. She was prepped and draped in the usual sterile manner, placed in supine position with leftward tilt. The Yeung catheter was placed in her bladder. After adequate anesthesia was assured, Pfannenstiel skin incision was made 2 fingerbreadths above the pubic symphysis. This incision was carried down to the underlying layer of fascia with the Bovie. The fascia was then incised in the midline. Fascial incision was then extended laterally with the Juan scissors. The superior aspect of the fascial incision was grasped with Cody clamps, elevated, and rectus muscles dissected off sharply. Inferior aspect of fascial incision was then grasped with Cody clamps, elevated, and rectus muscles dissected off sharply. Rectus muscles were in the midline. Peritoneum was then visualized, entered bluntly and extended superiorly and inferiorly with good visualization of bladder. Bladder blade was then inserted. The vesicouterine peritoneum was then grasped with pickups and entered sharply with Metzenbaum scissors. Incision was carried laterally and the bladder flap created digitally. Bladder blade was then reinserted. A low transverse uterine incision was then made with a knife. The incision was extended anteriorly and posteriorly. There was meconium-stained amniotic fluid noted upon entry into the amniotic sac. Baby boy head was asynclitic and wedged down in the pelvis. A vaginal hand was needed to help assist with delivery. The baby was then delivered in cephalic presentation, direct occiput posterior followed by anterior and then posterior shoulders. Mouth and nose were bulb suctioned. Cord was clamped x2, and cut. handed off to awaiting nurse practitioner. Cord blood and cord gases were obtained and sent. Placenta was then removed spontaneously intact with 3-vessel cord. Uterus was then exteriorized and cleared of all clots and debris. Incision was then repaired with 0 Vicryl in a running, locked fashion. Hemostasis was noted. A 2nd imbricating layer of suture was then performed with 0 Vicryl. Hemostasis was noted. Uterus was then returned back to the abdomen. The gutters were cleared of all clots and debris. Reinspection of the incision revealed some oozing so surgical Yi was placed and hemostasis was achieved. The rectus muscles were then reapproximated with 2-0 Vicryl in an inverted mattress fashion. The fascia was then closed with 0 Vicryl in a running fashion. Hemostasis was noted. Skin was then closed with 4-0 Vicryl on a Mainor needle. Patient tolerated the procedure well. No complications. Sponge, lap, needle and instrument counts correct x2. Patient was then taken to PACU in stable condition. IV FLUIDS: 1200 cc LR. URINE OUTPUT: 400 cc of clear urine at the end of the procedure. COMPLICATIONS: None. /[id number]/MODL MTDD
[2017-10-13 19:50] VITALS: O2SAT 93
[2017-10-14] MEDS: HYDROCODONE/APAP 5/325 TAB PO PRN ×4 (00:32→13:55)
[2017-10-14] MEDS: IBUPROFEN 600 MG TAB PO PRN ×3 (00:32→13:55)
[2017-10-14] MEDS: IRON POLYSAC/IRON HEME 28 MG TAB PO SCH (07:37)
[2017-10-14] MEDS: SENNOSIDES/DOCUSATE SODIUM TAB PO SCH (07:37)
[2017-10-14 08:35] VITALS: BP 113/76; PULSE 91; RESP 19; TEMP 97.9
--- NOTE | 2017-10-14 10:30 | OBPP ---
Progress Note Assessment/Plan: Assessment: 26 y/o POD #3 s/p LTCS secondary to arrest of descent Plan: Pt is ready to d/c home with [place] and Ibuprofen. Follow[facility]up @ [facility] 2, 4 and 6 weeks. Routine POC. 10/10/17 16:14 10/10/17 19:33 10/10/17 22:16 10/11/17 01:00 10/11/17 04:58 10/14/17 10:29 Subjective/ Course: 10/12/17 15:40 Pt doing ok. Reports some cramps and pulling pains. Bld is moderate. has cath is place - ok UOP. Elissa reg diet and no nausea today. Has been working on BF. 10/14/17 10:27 Pt is doing well with good pain control on Ibuprofen and [place]. She is ambulating and voiding well and + flatus but no BM. She decided not to breast feed because "the baby didn't like it." Her breasts feel fine, no engorgement. Objective: 10/12/17 05:45 10/10/17 03:48 Patient ABO/Rh A POSITIVE 10/10/17 06:40 Uric Acid 4.6 mg/dL (2.5-6.8) 10/10/17 03:48 Total Bilirubin 0.3 mg/dL (0.1-1.4) 10/10/17 03:48 Conjugated Bilirubin 0.2 mg/dL (0.0-0.5) 10/10/17 03:48 Unconjugated Bilirubin 0.1 mg/dL (0.0-1.1) 10/10/17 03:48 AST 17 IU/L (14-46) 10/10/17 03:48 ALT 28 IU/L (9-52) 10/10/17 03:48 Lactate Dehydrogenase 395 IU/L (313-618) 10/10/17 03:48 Temp Pulse Resp BP Pulse Ox 36.6 C 91 19 113/76 93 10/14/17 08:34 10/14/17 08:34 10/14/17 08:34 10/14/17 08:34 10/14/17 08:34 Uterine Position/Fundal Height: Umbilicus -2 Uterine Tone: Firm Physical Exam - Physical Exam Neck: non-tender, full range of motion, supple Respiratory: chest non-tender, lungs clear, normal breath sounds Cardiac/Chest: regular rate, rhythm Abdomen: normal bowel sounds, incision (c/d/i) Extremities: swelling (no), Keshav's sign (neg)
--- NOTE | 2017-10-14 10:31 | OBGCSDC ---
General Delivery Information - General Info : 1 Para: 1 Abortions: 0 Type: Primary L&D Analgesia/Anesthesia Type: Epidural, Spinal Admission Date: 10/10/17 Labs: Patient ABO/Rh A POSITIVE 10/10/17 06:40 Hct 29.2 % (38.0-47.0) L 10/12/17 05:45 - Hospital Course Antepartum: 10/10/17 16:13 care @ [facility]. Elevated BP and transient proteinuria. Pt presented with SHAH @ 41 weeks 10/11/17 14:41 Intrapartum: 10/10/17 16:11 Pt is feeling more contractions now. She had taken a shower and enjoyed the hot water for her back pain. She is sitting on the birthing ball and coping well. 10/10/17 19:31 Pt is now comfortable with her epidural. 10/10/17 22:15 Pt remains comfortable with her epidural. 10/11/17 00:59 Pt is resting comfortably. 10/11/17 04:56 Pt is now feeling more pelvic pressure and the sensation to have a BM. 10/11/17 11:03 Pt is pushing now. 10/11/17 14:39 Pt is starting to feel her ctx's. : 10/12/17 15:40 Pt doing ok. Reports some cramps and pulling pains. Bld is moderate. has cath is place - ok UOP. Elissa reg diet and no nausea today. Has been working on BF. 10/14/17 10:27 Pt is doing well with good pain control on Ibuprofen and [place]. She is ambulating and voiding well and + flatus but no BM. She decided not to breast feed because "the baby didn't like it." Her breasts feel fine, no engorgement. Vaginal - Diagnosis Amniotic Fluid Color: Clear - Procedures Non-surgical Procedures: Amniotomy, FSE, IUPC - Delivery Providers Surgeon: No Baltazar Sld Inclusion Teacher: Lina Borden Anesthesiologist: Phil Sotomayor - Delivery Number of Prior Sections: 0 Indications for Current Section: Arrest of Descent Non-surgical Procedures: Amniotomy, FSE, IUPC Surgical Procedures: Low Transverse Intra-op Complications: None EBL: 800cc UO-400 cc clear urine Data VIOLA: 09/30/17 Gestational Age: 42 week(s) and 0 day(s) Iniguez Delivery Date: 10/11/17 Delivery Time: 15:56 Sex of : Male Score (1 Min): 4 Score (5 Min): 8 Discharge Information - Discharge Information Prescriptions: Hydrocodone/APAP 5/325 [[place] 5/325 (*)] 1 - 2 tab PO Q4HRS PRN #30 tab PRN Reason: Pain, Moderate Ibuprofen [Motrin (*)] 600 mg PO Q6HRS PRN #30 tab PRN Reason: post , inflammation Iron Polysacch/Iron Heme Polyp [Bifera] 28 mg PO BID #60 tab Instruction/Follow Up: Two Weeks, Four Weeks, Six Weeks
== END 2017-10-14 17:06 | disposition home or self-care (01) | DRG 766 ==
LOC: FLD 03:11 → OBSVTOIN 06:11 → FOB 10-11 19:00
PROVIDERS: ADMIT Advanced Practice Midwife; ATTEND Obstetrics & Gynecology
PROC: 3E0P7GC Introduction of Other Therapeutic Substance into Female Reproductive, Via Natural or Artificial Opening (ICD-10-PCS; principal; 2017-10-11)
PROC: 10D00Z1 Extraction of Products of Conception, Low, Open Approach (ICD-10-PCS; principal; 2017-10-11)
PROC: 0U7C7DZ Dilation of Cervix with Intraluminal Device, Via Natural or Artificial Opening (ICD-10-PCS; principal; 2017-10-11)
PROC: 10907ZC Drainage of Amniotic Fluid, Therapeutic from Products of Conception, Via Natural or Artificial Opening (ICD-10-PCS; principal; 2017-10-11)
DX: O48.0 Post-term pregnancy (principal); O13.4 Gestational [pregnancy-induced] hypertension without significant proteinuria, complicating childbirth; O64.0XX0 Obstructed labor due to incomplete rotation of fetal head, not applicable or unspecified; O63.1 Prolonged second stage (of labor); O77.0 Labor and delivery complicated by meconium in amniotic fluid; O99.820 Streptococcus B carrier state complicating pregnancy; Z3A.41 41 weeks gestation of pregnancy; Z37.0 Single live birth
CPT/HCPCS: J0290; J0690; J1885; J2370; J2405; J2590; J2765; J2780; J3010; J3105